=== PATIENT | female | born 2000 | race Caucasian/White ===

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

== ENCOUNTER 2022-04-05 22:02 | Emergency (ER) | payer BC, OTHER ==
[2022-04-05 23:02] VITALS: TEMP 98.1
--- NOTE | 2022-04-06 00:08 | ED ---
Female Urogenital HPI - General Chief complaint: Vaginal Bleeding Stated complaint: Vaginal bleeding-5 1/2 weeks preg. Time Seen by Provider: 04/06/22 00:05 Source: patient, RN notes reviewed, old records reviewed Mode of arrival: ambulatory Limitations: no limitations - History of Present Illness Initial comments: This is a 21-year-old female to the ER for evaluation. Patient presents today for evaluation regarding vaginal bleeding of . Patient has history of 3 pregnancies 1 prior miscarriage this is her third one prior delivery and now vaginal bleeding in this no cramping no other complaints. Patient has had ultrasound which was uneventful and had no findings prior. Patient does have an OB. No medical history takes no medications does not feel lightheaded dizzy or weak MD Complaint: vaginal bleeding, other (Positive for ) -: days(s) Location: suprapubic Radiation: suprapubic Severity: moderate Severity scale (1-10): 4 Quality: cramping Consistency: intermittent Worsens with: none Patient : Yes Associated Symptoms: vaginal bleeding - Related Data Sexually active: Yes Home Medications Medication Instructions Recorded Confirmed busPIRone HCL 15 mg PO BID 08/01/20 12/02/21 Aspirin 81 mg PO DAILY 11/16/21 12/02/21 DULoxetine HCL [Cymbalta] 60 mg PO DAILY 11/16/21 12/02/21 Iron 18 mg PO DAILY 11/16/21 12/02/21 Pnv No.95/Ferrous Fum/Folic AC 1 each PO DAILY 11/16/21 12/02/21 [ Multivitamin Tablet] Sennosides [Senna] 8.6 mg PO DAILY 11/16/21 12/02/21 cloNIDine HCL 0.1 mg PO DAILY PRN 12/02/21 12/02/21 Allergies Allergy/AdvReac Type Severity Reaction Status Date / Time No Known Allergies Allergy Verified 04/05/22 23:02 Review of Systems ROS Statement: Those systems with pertinent positive or pertinent negative responses have been documented in the HPI. ROS Other: All systems not noted in ROS Statement are negative. Past Medical History Additional Past Medical History / Comment(s): scoliosis. TROUBLE SWALLOWING BREAD AND VEGETABLES, POSS REFLUX History of Any Multi-Drug Resistant Organisms: None Reported Past Surgical History: Tonsillectomy Additional Past Surgical History / Comment(s): tooth pulled under anesthesia Past Anesthesia/Blood Transfusion Reactions: No Reported Reaction Past Psychological History: ADD/ADHD, Anxiety, Depression, PTSD Smoking Status: Never smoker Past Alcohol Use History: Occasional Past Drug Use History: None Reported - Past Family History Mother Family Medical History: No Reported History General Exam Limitations: no limitations General appearance: alert, in no apparent distress Head exam: Present: atraumatic, normocephalic, normal inspection Eye exam: Present: normal appearance, PERRL, EOMI. Absent: scleral icterus, conjunctival injection, periorbital swelling ENT exam: Present: normal exam, mucous membranes moist Neck exam: Present: normal inspection. Absent: tenderness, meningismus, lymphadenopathy Respiratory exam: Present: normal lung sounds bilaterally. Absent: respiratory distress, wheezes, rales, rhonchi, stridor Cardiovascular Exam: Present: regular rate, normal rhythm, normal heart sounds. Absent: systolic murmur, diastolic murmur, rubs, gallop, clicks GI/Abdominal exam: Present: soft, normal bowel sounds. Absent: distended, tende rness, guarding, rebound, rigid Extremities exam: Present: normal inspection, full ROM, normal capillary refill. Absent: tenderness, pedal edema, joint swelling, calf tenderness Back exam: Present: normal inspection Neurological exam: Present: alert, oriented X3, CN II-XII intact Psychiatric exam: Present: normal affect, normal mood Skin exam: Present: warm, dry, intact, normal color. Absent: rash Course Vital Signs 04/05/22 23:00 Temperature 98.1 F Pulse Rate 85 Respiratory 16 Rate Blood Pressure 104/63 O2 Sat by Pulse 100 Oximetry - Reevaluation(s) Reevaluation #1: 04/06/22 01:47 Medical record is reviewed Reevaluation #2: 04/06/22 01:47 Patient informed of results and questions are answered Reevaluation #3: 04/06/22 01:48 Patient will follow-up with secondary beta hCG and see her OB next week Medical Decision Making - Medical Decision Making 21 female with vaginal bleeding of likely early complicated with bleeding threatened miscarriage. Patient will have repeat beta-hCG and trending - Lab Data Result diagrams: 04/06/22 00:30 Lab Results 04/06/22 04/06/22 04/06/22 Range/Units 00:30 00:30 00:30 WBC 6.4 (4.0-11.0) k/uL RBC 4.13 (3.80-5.40) m/uL Hgb 12.2 (11.4-16.0) gm/dL Hct 38.1 (34.0-46.0) % MCV 92.2 (80.0-100.0) fL MCH 29.4 (25.0-35.0) pg MCHC 31.9 (31.0-37.0) g/dL RDW 14.3 (11.5-15.5) % Plt Count 242 (150-450) k/uL MPV 8.2 Neutrophils % 52 % Lymphocytes % 38 % Monocytes % 4 % Eosinophils % 3 % Basophils % 1 % Neutrophils # 3.3 (1.3-7.7) k/uL Lymphocytes # 2.5 (1.0-4.8) k/uL Monocytes # 0.3 (0-1.0) k/uL Eosinophils # 0.2 (0-0.7) k/uL Basophils # 0.0 (0-0.2) k/uL PT (9.0-12.0) sec INR (<1.2) APTT (22.0-30.0) sec Urine Color Yellow Urine Appearance Cloudy H (Clear) Urine pH 6.0 (5.0-8.0) Ur Specific Thornton 1.015 (1.001-1.035) Urine Protein Negative (Negative) Urine Glucose (UA) Negative (Negative) Urine Ketones Negative (Negative) Urine Blood Negative (Negative) Urine Nitrite Negative (Negative) Urine Bilirubin Negative (Negative) Urine Urobilinogen <2.0 (<2.0) mg/dL Ur Leukocyte Esterase Negative (Negative) Urine RBC 1 (0-5) /hpf Urine WBC 1 (0-5) /hpf Ur Squamous Epith Cells 8 H (0-4) /hpf Urine Mucus Rare H (None) /hpf Urine HCG, Qual Detected (Not Detectd) 04/06/22 Range/Units 00:30 WBC (4.0-11.0) k/uL RBC (3.80-5.40) m/uL Hgb (11.4-16.0) gm/dL Hct (34.0-46.0) % MCV (80.0-100.0) fL MCH (25.0-35.0) pg MCHC (31.0-37.0) g/dL RDW (11.5-15.5) % Plt Count (150-450) k/uL MPV Neutrophils % % Lymphocytes % % Monocytes % % Eosinophils % % Basophils % % Neutrophils # (1.3-7.7) k/uL Lymphocytes # (1.0-4.8) k/uL Monocytes # (0-1.0) k/uL Eosinophils # (0-0.7) k/uL Basophils # (0-0.2) k/uL PT 10.6 (9.0-12.0) sec INR 1.0 (<1.2) APTT 27.2 (22.0-30.0) sec Urine Color Urine Appearance (Clear) Urine pH (5.0-8.0) Ur Specific Thornton (1.001-1.035) Urine Protein (Negative) Urine Glucose (UA) (Negative) Urine Ketones (Negative) Urine Blood (Negative) Urine Nitrite (Negative) Urine Bilirubin (Negative) Urine Urobilinogen (<2.0) mg/dL Ur Leukocyte Esterase (Negative) Urine RBC (0-5) /hpf Urine WBC (0-5) /hpf Ur Squamous Epith Cells (0-4) /hpf Urine Mucus (None) /hpf Urine HCG, Qual (Not Detectd) - Radiology Data Radiology results: report reviewed (Ultrasound does show likely gestational sac IUP), image reviewed Disposition Clinical Impression: Threatened , Vaginal bleeding, Disposition: HOME SELF-CARE Condition: Good Instructions (If sedation given, give patient instructions): Threatened Miscarriage (ED) Is patient prescribed a controlled substance at d/c from ED?: No Referrals: Wicho Olivas DO [Primary Care Provider] - 1-2 days
[2022-04-06] MEDS ORDERED: SODIUM CHLORIDE 0.9% 500 ML 500 ML IV ONE (00:10)
[2022-04-06 00:40] LABS: Basophils % (A) 1 %; Eosinophils # (A) 0.2 k/uL (0-0.7); Eosinophils % (A) 3 %; HCT 38.1 % (34.0-46.0); HGB 12.2 gm/dL (11.4-16.0); Lymphocytes # (A) 2.5 k/uL (1.0-4.8); Lymphocytes % (A) 38 %; MCH 29.4 pg (25.0-35.0); MCHC 31.9 g/dL (31.0-37.0); MCV 92.2 fL (80.0-100.0); Mean Platelet Volume 8.2; Monocytes # (A) 0.3 k/uL (0-1.0); Monocytes % (A) 4 %; Neutrophils # (A) 3.3 k/uL (1.3-7.7); Neutrophils % (A) 52 %; Platelet Count 242 k/uL (150-450); RBC 4.13 m/uL (3.80-5.40); RDW 14.3 % (11.5-15.5); WBC 6.4 k/uL (4.0-11.0)
[2022-04-06 00:44] LABS: Appearance,Urine Cloudy (Clear); Bilirubin,Urine Negative (Negative); Blood,Urine Negative (Negative); Color,Urine Yellow; Glucose,Urine (UA) Negative (Negative); Ketones,Urine Negative (Negative); Leukocyte Esterase,Urine Negative (Negative); Mucus,Urine Rare /hpf; Nitrite,Urine Negative (Negative); Protein,Urine Negative (Negative); RBC,Urine 1 /hpf (0-5); Specific Gravity,Urine 1.015 (1.001-1.035); Squamous Epithelial Cell,Urine 8 /hpf (0-4); Urobilinogen,Urine <2.0 mg/dL (<2.0); WBC,Urine 1 /hpf (0-5)
[2022-04-06 00:59] LABS: Partial Thromboplastin Time 27.2 sec (22.0-30.0); Prothrombin Time 10.6 sec (9.0-12.0)
--- NOTE | 2022-04-06 01:01 | US ---
EXAMINATION TYPE: Transabdominal DATE OF EXAM: 04/06/2022 12:44 AM COMPARISON: NONE CLINICAL HISTORY: pain. Vaginal bleeding for 3 days. Patient states she is 5w3d and has had a miscarr iage before. A1 EXAM PERFORMED: Transvaginal (TV) and Transabdominal (TA) EXAM MEASUREMENTS: GESTATIONAL AGE / DATING Physician Established: Not yet established Dates by LMP: (5 weeks/3 days) EDC: 02/26/22 Dates by First Scan: No previous this is first scan here Dates by Current Scan for: Based on gestational sac measurements: (5 weeks/1 days) EDC: 12/06/22 MATERNAL ANATOMY Uterus: 6.7 x 4.4 x 6.3 cm Right Ovary: 3.3 x 1.8 x 2.2 cm; corpus luteal cyst 1.5 x 1.2 x 1.1 cm Left Ovary: 1.9 x 1.1 x 1.5 cm Post CDS / Adnexa: small amount of fluid seen within the posterior cul de sac Presence of free fluid: See above. Presence of corpus luteal cyst: Yes, right ovary. Presence of subchorionic bleed: No GESTATION / SURVEY CRL: No pole visualized today. MSD: 1.05 cm (5 weeks/1 days) Yolk Sac (normal less than 6mm): 0.20 cm Date of LMP: 02/26/22 Beta HcG (if available): Not available at this time IMPRESSION: There is intrauterine gestational sac with small yolk sac. No pole seen. The size corresponds t o 5 weeks and 1 day. No adnexal mass. No free fluid. Follow-up exam recommended in 10-14 days to confirm a living fetus.
[2022-04-06 01:51] VITALS: BP 123/69; PULSE 78; RESP 18
== END 2022-04-06 01:53 | disposition home or self-care (01) ==
LOC: EC 22:02
DX: O20.0 Threatened abortion (principal); Z3A.01 Less than 8 weeks gestation of pregnancy
CPT/HCPCS: 36415; 76801; 76817; 81001; 81025; 84702; 85025; 85610; 85730; 86850; 86900; 86901

== ENCOUNTER 2022-10-22 16:14 | Emergency (ER) | payer BC, OTHER ==
[2022-10-22 16:18] VITALS: BP 113/74; PULSE 100; RESP 20; TEMP 98
--- NOTE | 2022-10-22 16:39 | ED ---
ENT HPI - General Chief complaint: Dental/Oral Stated complaint: Dental issues-34 weeks preg. Time Seen by Provider: 10/22/22 16:21 Source: patient, RN notes reviewed Mode of arrival: ambulatory Limitations: no limitations - History of Present Illness Initial comments: Patient is a 22-year-old female presenting to the emergency room with complaints of dental pain and swelling to the right lower wisdom tooth that is breaking through and also has a dental caries. She reports that the pain has been ongoing for several days with an increase over the last few days. Due to her current status she is unable to take many medications and consequently has been suffering with the pain and avoiding chewing in the region. She denies any other symptoms related to infection including chest pain, shortness of breath, abdominal pain, nausea, vomiting, lethargy, fevers or chills. She is currently 34 weeks with her second without any complications. In addition to her she has past medical history significant for possible gastric reflux and scoliosis. MD complaint: tooth pain - Related Data Home Medications Medication Instructions Recorded Confirmed busPIRone HCL 15 mg PO BID 08/01/20 12/02/21 Aspirin 81 mg PO DAILY 11/16/21 12/02/21 DULoxetine HCL [Cymbalta] 60 mg PO DAILY 11/16/21 12/02/21 Iron 18 mg PO DAILY 11/16/21 12/02/21 Pnv No.95/Ferrous Fum/Folic AC 1 each PO DAILY 11/16/21 12/02/21 [ Multivitamin Tablet] Sennosides [Senna] 8.6 mg PO DAILY 11/16/21 12/02/21 cloNIDine HCL 0.1 mg PO DAILY PRN 12/02/21 12/02/21 Previous Rx's Medication Instructions Recorded Penicillin V Potassium [Pen Vee K] 500 mg PO QID 7 Days #28 tablet 10/22/22 Allergies Allergy/AdvReac Type Severity Reaction Status Date / Time No Known Allergies Allergy Verified 04/05/22 23:02 Review of Systems ROS Statement: Those systems with pertinent positive or pertinent negative responses have been documented in the HPI. ROS Other: All systems not noted in ROS Statement are negative. Past Medical History Additional Past Medical History / Comment(s): scoliosis. TROUBLE SWALLOWING BREAD AND VEGETABLES, POSS REFLUX History of Any Multi-Drug Resistant Organisms: None Reported Past Surgical History: Tonsillectomy Additional Past Surgical History / Comment(s): tooth pulled under anesthesia Past Anesthesia/Blood Transfusion Reactions: No Reported Reaction Past Psychological History: ADD/ADHD, Anxiety, Depression, PTSD Smoking Status: Never smoker Past Alcohol Use History: Occasional Past Drug Use History: None Reported - Past Family History Mother Family Medical History: No Reported History General Exam Limitations: no limitations General appearance: alert, in no apparent distress Head exam: Present: atraumatic, normocephalic, normal inspection Eye exam: Present: normal appearance, PERRL, EOMI. Absent: scleral icterus, conjunctival injection, periorbital swelling Expanded Mouth exam: Present: normal external inspection. Absent: drooling Teeth exam: Present: dental caries (Right lower wisdom tooth# 32 ), gingival enlargement (Right lower posterior), other (No evidence of abscess) Throat exam: normal inspection Neck exam: Present: normal inspection, full ROM. Absent: lymphadenopathy Respiratory exam: Present: normal lung sounds bilaterally. Absent: respiratory distress, wheezes, rales, rhonchi, stridor Cardiovascular Exam: Present: regular rate, normal rhythm, normal heart sounds. Absent: systolic murmur, diastolic murmur, rubs, gallop, clicks GI/Abdominal exam: Present: other (34 weeks gestational ) Extremities exam: Present: normal inspection. Absent: pedal edema, joint swelling Back exam: Present: normal inspection Neurological exam: Present: alert, oriented X3, CN II-XII intact Psychiatric exam: Present: normal affect, normal mood Skin exam: Present: warm, dry, intact, normal color. Absent: rash Course Vital Signs 10/22/22 16:15 Temperature 98 F Pulse Rate 100 Respiratory 20 Rate Blood Pressure 113/74 O2 Sat by Pulse 96 Oximetry Medical Decision Making - Medical Decision Making 22-year-old female presenting to the emergency room with dental pain and swelling to her right wisdom tooth along with a dental caries. No evidence of abscess on exam requiring laceration/drainage. Gingival enlargement with erythema and tenderness noted. No indication for laboratory studies or diagnostic imaging. Will discharge patient home on penicillin in stable condition. Due to concurrent advised avoidance of ibuprofen. Encouraged use of Tylenol as needed for pain along with warm compresses and warm salt water rinses to help reduce inflammation and pain. Case discussed with Dr. Verdin. Disposition Clinical Impression: Dental caries, Acute pulpitis Disposition: HOME SELF-CARE Condition: Stable Instructions (If sedation given, give patient instructions): Toothache (ED) Additional Instructions: Please complete course of antibiotic as prescribed. Please follow-up with your dentist and primary care provider. Please utilize Tylenol as needed for pain. Warm salt water rinses along with warm packs externally are encouraged to help reduce inflammation. Due to concurrent avoid use of NSAIDs including ibuprofen. Please return to the Emergency Department if symptoms worsen or any other concerns. Prescriptions: Penicillin V Potassium [Pen Vee K] 500 mg PO QID 7 Days #28 tablet Is patient prescribed a controlled substance at d/c from ED?: No Referrals: Wicho Olivas DO [Primary Care Provider] - 1-2 days Time of Disposition: 16:39
== END 2022-10-22 16:57 | disposition home or self-care (01) ==
LOC: EC 16:14
DX: O99.613 Diseases of the digestive system complicating pregnancy, third trimester (principal); O99.343 Other mental disorders complicating pregnancy, third trimester; K02.9 Dental caries, unspecified; K04.01 Reversible pulpitis; F41.9 Anxiety disorder, unspecified; F31.9 Bipolar disorder, unspecified; Z79.82 Long term (current) use of aspirin; Z79.899 Other long term (current) drug therapy; Z3A.34 34 weeks gestation of pregnancy
CPT/HCPCS: 99282

== ENCOUNTER 2022-11-26 18:07 | Inpatient (IN) | payer BC, OTHER ==
[2022-11-26] MEDS: OXYTOCIN 30 UNITS/500 ML NS 30 UNIT in SALINE 1 500ML.BAG IV SCH ×2 (18:45→21:00)
--- NOTE | 2022-11-26 19:07 | P.HPOB ---
History of Present Illness H&P Date: 11/26/22 Chief Complaint: Strong regular contractions, "I need to push" This is a 22-year-old female 2 para 1001 EDC 12/03/2022 at 38-6/7 weeks' gestation, who presented with a urge to push and strong regular uterine contractions. She denied fluid leakage or vaginal bleeding. Past medical history is significant for anxiety and depression. Past surgical history is negative. history is significant for negative group B strep cultures, blood type A+, rubella status immune. Urine culture, hepatitis B surface antigen, HIV testing, gonorrhea and chlamydia cultures all negative. One-hour Glucola 135. Social history patient is single, father of the baby is present and involved. She denies tobacco alcohol or drug use. Current medications clonidine 0.1 mg daily, Cymbalta 30 mg daily, BuSpar 15 mg daily, vitamin daily. On exam patient is 5 foot 3 inches, 180 pounds, vital signs are stable and she is afebrile. The general physical exam is within normal limits. On admission she is 8-9 cm dilated, bulging bag, -2 station, vertex presentation, 100% effaced. heart tones reassuring. Impression: 38-6/7 weeks intrauterine , active labor, delivery imminent. Plan: Patient will be admitted. Anticipating normal spontaneous vaginal delivery. Review of Systems Constitutional: Reports as per HPI Past Medical History Additional Past Medical History / Comment(s): scoliosis. TROUBLE SWALLOWING BREAD AND VEGETABLES, POSS REFLUX History of Any Multi-Drug Resistant Organisms: None Reported Past Surgical History: Tonsillectomy Additional Past Surgical History / Comment(s): tooth pulled under anesthesia Past Anesthesia/Blood Transfusion Reactions: No Reported Reaction Past Psychological History: ADD/ADHD, Anxiety, Depression, PTSD Smoking Status: Never smoker Past Alcohol Use History: Occasional Past Drug Use History: None Reported - Past Family History Mother Family Medical History: No Reported History Medications and Allergies Home Medications Medication Instructions Recorded Confirmed Type busPIRone HCL 15 mg PO BID 08/01/20 12/02/21 History Aspirin 81 mg PO DAILY 11/16/21 12/02/21 History DULoxetine HCL [Cymbalta] 60 mg PO DAILY 11/16/21 12/02/21 History Iron 18 mg PO DAILY 11/16/21 12/02/21 History Pnv No.95/Ferrous Fum/Folic AC 1 each PO DAILY 11/16/21 12/02/21 History [ Multivitamin Tablet] Sennosides [Senna] 8.6 mg PO DAILY 11/16/21 12/02/21 History cloNIDine HCL 0.1 mg PO DAILY PRN 12/02/21 12/02/21 History Penicillin V Potassium [Pen Vee K] 500 mg PO QID 7 Days #28 tablet 10/22/22 Rx Allergies Allergy/AdvReac Type Severity Reaction Status Date / Time No Known Allergies Allergy Verified 04/05/22 23:02 Exam See dictation under HPI please Assessment and Plan Assessment: 38-6/7 weeks intrauterine , active labor, delivery imminent Plan: Admit patient. Anticipate normal spontaneous vaginal delivery. Time with Patient: Less than 30
[2022-11-26] MEDS ORDERED: diphenhydrAMINE 50 MG/ML 1 ML VIAL IVP PRN ×2 (19:10)
[2022-11-26] MEDS ORDERED: BENZOCAINE/MENTHOL SPRAY 1 GM/SPRAY AEROSOL TOPICAL PRN (19:10)
[2022-11-26] MEDS ORDERED: SIMETHICONE 80 MG CHEWABLE PO PRN (19:10)
[2022-11-26] MEDS ORDERED: LANOLIN CREAM 5 GM TUBE TOPICAL PRN (19:10)
[2022-11-26] MEDS ORDERED: ZOLPIDEM 5 MG TAB PO PRN (19:10)
[2022-11-26] MEDS ORDERED: diphenhydrAMINE ELIXIR 25 MG/10 ML CUP PO PRN (19:10)
[2022-11-26] MEDS ORDERED: ACETAMINOPHEN TAB 325 MG TAB PO PRN (19:10)
[2022-11-26] MEDS ORDERED: diphenhydrAMINE 50 MG CAP PO PRN (19:10)
[2022-11-26] MEDS ORDERED: diphenhydrAMINE 25 MG CAP PO PRN (19:10)
[2022-11-26] MEDS ORDERED: HYDROCORTISONE 2.5% RECTAL CREAM 30 GM TUBE RECTAL PRN (19:10)
--- NOTE | 2022-11-26 19:10 | P.PROBDLV ---
Vaginal Delivery Note - . Vaginal Delivery Note: This is a 22-year-old female 2 para 1001 EDC 12/03/2022 at 38-6/7 weeks' gestation who presented with strong regular uterine contractions and an urge to push. Fetus has looked healthy on brief monitoring. Patient was admitted. Upon entering the room on my exam patient was completely dilated, vertex presentation. Artificial amniorrhexis revealed meconium-stained fluid. Patient was judged to be completely dilated at 1835 hrs. Perineal body was prepped and draped in usual sterile fashion. With excellent maternal expulsive efforts the infant's head delivered occiput anterior 1841 hrs. There was no nuchal cord noted. The left or anterior shoulder was gently delivered from underneath the pubic symphysis at which time the oropharynx, nasopharynx, and external nares were all bulb suctioned. Patient was officially delivered of a liveborn male infant at 1841 hrs. Umbilical cord was doubly clamped and ligated, he was handed to waiting nurses for evaluation where scores of 8 and 9 at one and 5 minutes respectively were given. The placenta delivered spontaneously, it was inspected and noted to be very darkly meconium stained, therefore sent to pathology for further evaluation. Time of placental delivery 1844 hrs. At this time the uterus is massaged. Careful inspection of the cervix, vagina, perineum, periurethral, and perirectal areas revealed no lacerations or defects. Infant weighs 8 lbs. 3 oz. or 3715 g. Patient is declining circumcision for her son. Total estimated blood loss 300 mL's. All sponge needle and enhancement counts are correct. Patient and her family are allowed to begin the bonding experience in the LDR.
[2022-11-26] MEDS ORDERED: cloNIDine HCL 0.1 MG TAB PO STA (19:11)
[2022-11-26] MEDS ORDERED: METHYLERGONOVINE 0.2 MG/ML 1 ML AMP IM ONE (19:17)
[2022-11-26] MEDS ORDERED: TERBUTALINE 1 MG/ML VIAL SQ PRN (19:32)
[2022-11-26] MEDS: IBUPROFEN 600 MG TAB PO SCH (19:41)
[2022-11-26] MEDS ORDERED: LACTATED RINGERS 1,000 ML IV SCH (19:45)
[2022-11-26 19:51] LABS: Basophils % (A) 0 %; Eosinophils # (A) 0.1 k/uL (0-0.7); Eosinophils % (A) 1 %; HCT 36.3 % (34.0-46.0); HGB 12.1 gm/dL (11.4-16.0); Hypochromasia Slight; Lymphocytes # (A) 2.2 k/uL (1.0-4.8); Lymphocytes % (A) 23 %; MCH 30.2 pg (25.0-35.0); MCHC 33.4 g/dL (31.0-37.0); MCV 90.4 fL (80.0-100.0); Mean Platelet Volume 13.5; Monocytes # (A) 0.3 k/uL (0-1.0); Monocytes % (A) 3 %; Neutrophils # (A) 6.7 k/uL (1.3-7.7); Neutrophils % (A) 71 %; Platelet Count 163 k/uL (150-450); RBC 4.02 m/uL (3.80-5.40); RDW 13.7 % (11.5-15.5); WBC 9.5 k/uL (4.0-11.0)
[2022-11-26] MEDS ORDERED: busPIRone HCl 5 MG TAB PO SCH (21:00)
[2022-11-26] MEDS: DULoxetine HCL 30 MG CAPSULE.DR PO SCH (21:25)
[2022-11-26] MEDS: SENNOSIDES-DOCUSATE SODIUM 1 EACH TAB PO SCH (22:10)
[2022-11-27] MEDS: IBUPROFEN 600 MG TAB PO SCH ×4 (02:18→14:25)
[2022-11-27] MEDS: SENNOSIDES-DOCUSATE SODIUM 1 EACH TAB PO SCH (08:00)
[2022-11-27] MEDS: DULoxetine HCL 30 MG CAPSULE.DR PO SCH (08:26)
--- NOTE | 2022-11-27 12:49 | P.DS ---
Providers Date of admission: 11/26/22 18:28 Expected date of discharge: 11/27/22 Attending physician: Floyd Sauer Primary care physician: Stated None Hospital Course: This is a 22-year-old white female 2 para 1001 EDC 12/03/2022 at 38-6/7 weeks' gestation who presented in active labor from home is remarkable for blood type A positive, rubella status immune, group B strep cultures negative. Please see dictated history and physical for details. Artificial amniorrhexis revealed meconium-stained fluid. Patient went on to swiftly deliver a liveborn male infant with scores of 8 and 9 at one and 5 minutes respectively. Infant weight 8 lbs. 3 oz. or 3715 g. There were no lacerations encountered. Estimated blood loss 300 mL's. Please see dictated delivery note for details. This morning the patient is doing quite well. She is voiding, ambulating, passing flatus without difficulty. Vital signs are stable and she is afebrile. Fundus is firm and in the midline, symmetric and 18 week size. Extremities are negative for edema. Patient is doing quite well and is requesting discharge home. infant is also doing well. She is declining circumcision for her son. Patient being discharged home in very good condition. She will follow-up with her primary finisher accordion in 6 weeks. I have reminded her no intercourse, tampons or douching. She will use [id number] Motrin, Advil or Aleve as needed for pain. I've asked her to call with any fevers shakes or chills, foul smelling or copious lochia, with the passage of large blood clots, with any pain not alleviated by [id number] products, or indeed with any concerns. Receptive options have been discussed and she will consider this further at the 6 week visit with her primary OB. Assessment: Doing well first day Patient Condition at Discharge: Good Plan - Discharge Summary Discharge Rx Participant: No New Discharge Prescriptions: No Action busPIRone HCL 15 mg PO BID Aspirin 81 mg PO DAILY Pnv No.95/Ferrous Fum/Folic AC [ Multivitamin Tablet] 1 each PO DAILY DULoxetine HCL [Cymbalta] 60 mg PO DAILY Sennosides [Senna] 8.6 mg PO DAILY Iron 18 mg PO DAILY cloNIDine HCL 0.1 mg PO DAILY PRN PRN Reason: Insomnia Penicillin V Potassium [Pen Vee K] 500 mg PO QID 7 Days #28 tablet Discharge Medication List busPIRone HCL 15 mg PO BID 08/01/20 [History] Aspirin 81 mg PO DAILY 11/16/21 [History] DULoxetine HCL [Cymbalta] 60 mg PO DAILY 11/16/21 [History] Iron 18 mg PO DAILY 11/16/21 [History] Pnv No.95/Ferrous Fum/Folic AC [ Multivitamin Tablet] 1 each PO DAILY 11/16/21 [History] Sennosides [Senna] 8.6 mg PO DAILY 11/16/21 [History] cloNIDine HCL 0.1 mg PO DAILY PRN 12/02/21 [History] Penicillin V Potassium [Pen Vee K] 500 mg PO QID 7 Days #28 tablet 10/22/22 [Rx] Follow up Appointment(s)/Referral(s): Floyd Sauer MD [STAFF PHYSICIAN] - 6 Weeks Discharge Disposition: HOME SELF-CARE
[2022-11-27 19:08] VITALS: BP 120/74; PULSE 75; RESP 17; TEMP 97.9
== END 2022-11-27 19:20 | disposition home or self-care (01) | DRG 807 ==
LOC: FBPOP 18:07 → 4FBP 18:28
PROVIDERS: ADMIT Obstetrics & Gynecology; ATTEND Obstetrics & Gynecology
PROC: 10E0XZZ Delivery of Products of Conception, External Approach (ICD-10-PCS; principal; 2022-11-26)
PROC: 10907ZC Drainage of Amniotic Fluid, Therapeutic from Products of Conception, Via Natural or Artificial Opening (ICD-10-PCS; 2022-11-26)
PROC: 4A0HXCZ Measurement of Products of Conception, Cardiac Rate, External Approach (ICD-10-PCS; 2022-11-26)
DX: O77.0 Labor and delivery complicated by meconium in amniotic fluid (principal); Z37.0 Single live birth; O99.344 Other mental disorders complicating childbirth; F32.A Depression, unspecified; F43.10 Post-traumatic stress disorder, unspecified; F90.9 Attention-deficit hyperactivity disorder, unspecified type; Z3A.38 38 weeks gestation of pregnancy; Z79.82 Long term (current) use of aspirin; Z79.899 Other long term (current) drug therapy
CPT/HCPCS: 85025; 86850; 86900; 86901; 88307

== ENCOUNTER → 2023-07-20 | Outpatient (CLI) | payer BC, OTHER ==
--- NOTE | 2023-07-20 14:27 | US ---
EXAMINATION TYPE: US extremity nonvasc mass LT DATE OF EXAM: 07/20/2023 COMPARISON: NONE CLINICAL INDICATION: Female, 22 years old with history of T14.8XXA OTHER INJURY OF UNSPECIFIED BODY R EGION; TECHNIQUE: Sanchez scale imaging performed over palpable area, left lateral upper thigh. FINDINGS: There is an anechoic fluid collection measuring 9.5 x 1.1 x 6.1 cm, probable hematoma loca neo directly under palpable. IMPRESSION: Anechoic fluid collection in the posterior left upper thigh could represent seroma versus hematoma.
== END | disposition home or self-care (01) ==
LOC: RADUSWWP 14:08
PROVIDERS: ATTEND Family Medicine
DX: T14.8XXA Other injury of unspecified body region, initial encounter (principal); Y99.9 Unspecified external cause status

== ENCOUNTER 2023-09-21 17:50 | Emergency (ER) | payer BC, OTHER ==
[2023-09-21 18:17] VITALS: PULSE 105; RESP 18; TEMP 97.3
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
[2023-09-21 21:09] LABS: Appearance,Urine Slightly Cloudy (Clear); Bilirubin,Urine 1+ (Negative); Color,Urine Dark Yellow; Glucose,Urine (UA) Negative (Negative); Ketones,Urine Trace (Negative); Protein,Urine 1+ (Negative); Specific Gravity,Urine >1.030 (1.001-1.035)
[2023-09-21 21:10] LABS: Blood,Urine Negative (Negative); Leukocyte Esterase,Urine Small (Negative); Nitrite,Urine Negative (Negative)
[2023-09-21 21:19] LABS: Basophils % (A) 0 %; Eosinophils # (A) 0.2 k/uL (0-0.7); Eosinophils % (A) 2 %; HCT 39.3 % (34.0-46.0); HGB 12.9 gm/dL (11.4-16.0); Lymphocytes # (A) 2.6 k/uL (1.0-4.8); Lymphocytes % (A) 23 %; MCHC 32.7 g/dL (31.0-37.0); MCV 88.6 fL (80.0-100.0); Mean Platelet Volume 9.1; Monocytes # (A) 0.5 k/uL (0-1.0); Monocytes % (A) 5 %; Neutrophils # (A) 7.8 k/uL (1.3-7.7); Neutrophils % (A) 69 %; Platelet Count 194 k/uL (150-450); RBC 4.43 m/uL (3.80-5.40); RDW 13.4 % (11.5-15.5); WBC 11.3 k/uL (3.8-10.6)
[2023-09-21 21:20] LABS: Bacteria,Urine Rare /hpf; Mucus,Urine Many /hpf; RBC,Urine 3 /hpf (0-5); Squamous Epithelial Cell,Urine 8 /hpf (0-4); WBC,Urine 3 /hpf (0-5)
[2023-09-21 22:15] LABS: ALT 14 U/L (4-34); African American GFR (CKD) >90 (>60 ml/min/1.73 sqM); Anion Gap 12 mmol/L; Blood Urea Nitrogen 16 mg/dL (7-17); Calcium 9.1 mg/dL (8.4-10.2); Carbon Dioxide 21 mmol/L (22-30); Chloride 104 mmol/L (98-107); Glucose 85 mg/dL (74-99); Non-African American GFR(CKD) >90 (>60 ml/min/1.73 sqM); Sodium 137 mmol/L (137-145)
--- NOTE | 2023-09-21 22:16 | US ---
EXAMINATION TYPE: US extremity nonvasc mass LT DATE OF EXAM: 09/21/2023 COMPARISON: us July 20, 2023 CLINICAL INDICATION: Female, 23 years old with history of pain swelling left lateral thigh; Pt states pain and swelling returned today from prior injury to left leg in June TECHNIQUE: Left lateral thigh FINDINGS: Fluid collection left lateral thigh as visualized on prior exam in June- fluid appears more complex when compared to prior Persistent fluid collection in the left lateral thigh is similar in size with more ill-defined margin s IMPRESSION: Fairly moderate sized fluid collection in the deep subcutaneous tissue left lateral thig h likely reflects recurrent or residual hematoma.
[2023-09-21 22:17] LABS: AST 33 U/L (14-36); Albumin 4.5 g/dL (3.5-5.0); Alkaline Phosphatase 58 U/L (38-126); Potassium 4.6 mmol/L (3.5-5.1); Total Bilirubin 0.8 mg/dL (0.2-1.3); Total Protein 7.6 g/dL (6.3-8.2)
[2023-09-21] MEDS ORDERED: LIDOCAINE 1% INJ 10MG/ML (20 ML MDV) SQ ONE (22:38)
[2023-09-21] MEDS ORDERED: ALPRAZolam 1 MG TAB PO STA (22:54)
[2023-09-22] VITALS: BP 108/68
== END 2023-09-22 00:01 | disposition home or self-care (01) ==
LOC: EC 17:50
DX: S70.12XA Contusion of left thigh, initial encounter (principal); F32.A Depression, unspecified; F41.9 Anxiety disorder, unspecified; F90.9 Attention-deficit hyperactivity disorder, unspecified type; Z79.82 Long term (current) use of aspirin; Z79.899 Other long term (current) drug therapy; W22.8XXA Striking against or struck by other objects, initial encounter
CPT/HCPCS: 99284; 36415; 80053; 85025; 81001; 87070; 87205; 76882; J2001

== ENCOUNTER 2024-01-19 21:59 | Emergency (ER) | payer BC ==
[2024-01-19] MEDS: LIDOCAINE 1% INJ 10MG/ML (20 ML MDV) SQ ONE (22:34)
[2024-01-19] MEDS: DIPH,PERTUS(ACELL)TETVAC-LF 0.5 ML VIAL IM ONE (22:34)
[2024-01-19 22:36] VITALS: BP 125/74; PULSE 108; RESP 20; TEMP 98.6
--- NOTE | 2024-01-19 22:51 | ED ---
Wound/Laceration HPI - General Chief Complaint: Wound/Laceration Stated Complaint: laceration right arm Time Seen by Provider: 01/19/24 22:07 Source: patient Mode of arrival: ambulatory Limitations: no limitations - History of Present Illness Initial Comments: 23-year-old female presenting with chief complaint of laceration. Patient states that she tripped and caught her right forearm on her counter. She is unsure of her last tetanus. Bleeding is well-controlled at this time. Laceration approximately 3 and half centimeters. No other complaints - Related Data Home Medications Medication Instructions Recorded Confirmed busPIRone HCL 15 mg PO BID 08/01/20 12/02/21 Aspirin 81 mg PO DAILY 11/16/21 12/02/21 DULoxetine HCL [Cymbalta] 60 mg PO DAILY 11/16/21 12/02/21 Iron 18 mg PO DAILY 11/16/21 12/02/21 Pnv No.95/Ferrous Fum/Folic AC 1 each PO DAILY 11/16/21 12/02/21 [ Multivitamin Tablet] Sennosides [Senna] 8.6 mg PO DAILY 11/16/21 12/02/21 cloNIDine HCL 0.1 mg PO DAILY PRN 12/02/21 12/02/21 Previous Rx's Medication Instructions Recorded Penicillin V Potassium [Pen Vee K] 500 mg PO QID 7 Days #28 tablet 10/22/22 Allergies Allergy/AdvReac Type Severity Reaction Status Date / Time No Known Allergies Allergy Verified 01/19/24 22:06 Review of Systems ROS Statement: Those systems with pertinent positive or pertinent negative responses have been documented in the HPI. ROS Other: All systems not noted in ROS Statement are negative. Past Medical History Additional Past Medical History / Comment(s): scoliosis. TROUBLE SWALLOWING BREAD AND VEGETABLES, POSS REFLUX History of Any Multi-Drug Resistant Organisms: None Reported Past Surgical History: Tonsillectomy Additional Past Surgical History / Comment(s): tooth pulled under anesthesia Past Anesthesia/Blood Transfusion Reactions: No Reported Reaction Past Psychological History: ADD/ADHD, Anxiety, Depression, PTSD Smoking Status: Never smoker Past Alcohol Use History: Occasional Past Drug Use History: None Reported - Past Family History Mother Family Medical History: No Reported History General Exam Limitations: no limitations General appearance: alert, in no apparent distress Head exam: Present: atraumatic, normocephalic Eye exam: Present: normal appearance Neck exam: Present: normal inspection Respiratory exam: Absent: respiratory distress Extremities exam: Present: full ROM Neurological exam: Present: alert, oriented X3 Psychiatric exam: Present: normal affect, normal mood Expanded Type of lesion: Present: laceration (3.5cm right forearm) Course Vital Signs 01/19/24 22:02 Temperature 98.6 F Pulse Rate 108 H Respiratory 20 Rate Blood Pressure 125/74 O2 Sat by Pulse 99 Oximetry Procedures - Laceration Laceration #1 Consent Obtained: verbal consent Indication: laceration Site: upper extremity (R forearm) Size (cm): 4 Description: linear Depth: simple, single layer Anesthetic Used: lidocaine 1%, without epi Anesthesia Technique: local infiltration Pre-repair: wound explored Size of Sutures: 4-0 Number of Sutures: 3 Technique: simple, interrupted Patient Tolerated Procedure: well Medical Decision Making - Medical Decision Making Was pt. sent in by a medical professional or institution (, PA, CONTRACT ENGINEER, urgent care, hospital, or snf...) When possible be specific @ -No Did you speak to anyone other than the patient for history (EMS, parent, family, police, friend...)? What history was obtained from this source @ -No Did you review nursing and triage notes (agree or disagree)? Why? @ -I reviewed and agree with nursing and triage notes Were old charts reviewed (outside hosp., previous admission, EMS record, old EKG, old radiological studies, urgent care reports/EKG's, snf records)? Report findings @ -No old charts were reviewed Differential Diagnosis (chest pain, altered mental status, abdominal pain women, abdominal pain men, vaginal bleeding, weakness, fever, dyspnea, syncope, headache, dizziness, GI bleed, back pain, seizure, CVA, palpatations, mental health, musculoskeletal)? @ -Not applicable EKG interpreted by me (3pts min.). @ -As above X-rays interpreted by me (1pt min.). @ -None done CT interpreted by me (1pt min.). @ -None done U/S interpreted by me (1pt. min.). @ -None done What testing was considered but not performed or refused? (CT, X-rays, U/S, labs)? Why? @ -None What meds were considered but not given or refused? Why? @ -None Did you discuss the management of the patient with other professionals (professionals i.e. DrMirna, PA, CONTRACT ENGINEER, lab, RT, psych nurse, social media campaign manager, gluing pressman, teacher, commanding officer homicide squad, pillowcase cleaner)? Give summary @ -No Was smoking cessation discussed for >3mins.? @ -No Was critical care preformed (if so, how long)? @ -No Were there social determinants of health that impacted care today? How? (Homelessness, low income, unemployed, alcoholism, drug addiction, transportation, low edu. Level, literacy, decrease access to med. care, halfway, rehab)? @ -No Was there de-escalation of care discussed even if they declined (Discuss DNR or withdrawal of care, Hospice)? DNR status @ -No What co-morbidities impacted this encounter? (DM, HTN, Smoking, COPD, CAD, Cancer, CVA, ARF, Chemo, Hep., AIDS, mental health diagnosis, sleep apnea, morbid obesity)? @ -None Was patient admitted / discharged? Hospital course, mention meds given and route, prescriptions, significant lab abnormalities, going to OR and other pertinent info. @ -23-year-old female presenting with chief complaint of forearm laceration. Laceration is repaired, see procedure note for details. Educated on wound care and signs of infection. Discharged home. Follow-up with PCP. Report back to ER with any new or worsening symptoms. Discussed return parameters and answered all questions. Patient conveyed verbal understanding and agreed to the plan. I discussed this case in detail with my attending Dr. Salas Undiagnosed new problem with uncertain prognosis? @ -No Drug Therapy requiring intensive monitoring for toxicity (Heparin, Nitro, Insulin, Cardizem)? @ -No Were any procedures done? @ -Laceration repair Diagnosis/symptom? @ -Laceration Acute, or Chronic, or Acute on Chronic? @ -Acute Uncomplicated (without systemic symptoms) or Complicated (systemic symptoms)? @ -Uncomplicated Side effects of treatment? @ -No Exacerbation, Progression, or Severe Exacerbation? @ -No Poses a threat to life or bodily function? How? (Chest pain, [place], [place], pneumonia, PE, COPD, DKA, ARF, appy, cholecystitis, CVA, Diverticulitis, Homicidal, Suicidal, threat to staff... and all critical care pts) @ -No Disposition Clinical Impression: Laceration Disposition: HOME SELF-CARE Condition: Good Instructions (If sedation given, give patient instructions): Care For Your Stitches (ED), Laceration (ED) Additional Instructions: Follow up with PCP. Report back to ER with any new or worsening symptoms. Keep the wound clean dry and covered. Wash daily with soap and water. Monitor for any signs of infection, including but not limited to redness, swelling, warmth, tenderness, discharge. Sutures may be removed in 7 to 10 days. Is patient prescribed a controlled substance at d/c from ED?: No Referrals: Wicho Olivas DO [Primary Care Provider] - 1-2 days Time of Disposition: 22:51
== END 2024-01-19 23:00 | disposition home or self-care (01) ==
LOC: EC 21:59
DX: S51.811A Laceration without foreign body of right forearm, initial encounter (principal); F32.A Depression, unspecified; F41.9 Anxiety disorder, unspecified; Z79.899 Other long term (current) drug therapy; Z23 Encounter for immunization; W18.40XA Slipping, tripping and stumbling without falling, unspecified, initial encounter; W22.8XXA Striking against or struck by other objects, initial encounter
CPT/HCPCS: 90715; 12002; 99282; 90471; J2001

== ENCOUNTER 2024-01-26 01:43 | Emergency (ER) | payer BC ==
[2024-01-26 02:08] VITALS: TEMP 97.7
--- NOTE | 2024-01-26 03:05 | ED ---
General Adult HPI - General Chief complaint: Wound/Laceration Stated complaint: WOUND OPENED Time Seen by Provider: 01/26/24 02:18 Source: patient Mode of arrival: ambulatory Limitations: no limitations - History of Present Illness Initial comments: 23-year-old female presents to the ED with chief complaint of wound problem. Patient had laceration to her right anterior forearm which was repaired with stitches. Patient states that she removed the stitches herself and the wound has opened up prompting presentation to the ED for further evaluation. No other complaints at this time. - Related Data Home Medications Medication Instructions Recorded Confirmed busPIRone HCL 15 mg PO BID 08/01/20 12/02/21 Aspirin 81 mg PO DAILY 11/16/21 12/02/21 DULoxetine HCL [Cymbalta] 60 mg PO DAILY 11/16/21 12/02/21 Iron 18 mg PO DAILY 11/16/21 12/02/21 Pnv No.95/Ferrous Fum/Folic AC 1 each PO DAILY 11/16/21 12/02/21 [ Multivitamin Tablet] Sennosides [Senna] 8.6 mg PO DAILY 11/16/21 12/02/21 cloNIDine HCL 0.1 mg PO DAILY PRN 12/02/21 12/02/21 Previous Rx's Medication Instructions Recorded Penicillin V Potassium [Pen Vee K] 500 mg PO QID 7 Days #28 tablet 10/22/22 Allergies Allergy/AdvReac Type Severity Reaction Status Date / Time No Known Allergies Allergy Verified 01/26/24 01:52 Review of Systems ROS Statement: Those systems with pertinent positive or pertinent negative responses have been documented in the HPI. ROS Other: All systems not noted in ROS Statement are negative. Past Medical History Additional Past Medical History / Comment(s): scoliosis. TROUBLE SWALLOWING BREAD AND VEGETABLES, POSS REFLUX History of Any Multi-Drug Resistant Organisms: None Reported Past Surgical History: Tonsillectomy Additional Past Surgical History / Comment(s): tooth pulled under anesthesia, lip lift Past Anesthesia/Blood Transfusion Reactions: No Reported Reaction Past Psychological History: ADD/ADHD, Anxiety, Depression, PTSD Smoking Status: Never smoker Past Alcohol Use History: Occasional Past Drug Use History: None Reported - Past Family History Mother Family Medical History: No Reported History General Exam Limitations: no limitations General appearance: alert, in no apparent distress Eye exam: Present: normal appearance Neck exam: Present: normal inspection Respiratory exam: Present: normal lung sounds bilaterally Cardiovascular Exam: Present: regular rate, normal rhythm GI/Abdominal exam: Present: soft Extremities exam: Present: other (Patient has approximately 1-1/2 cm laceration to the right anterior forearm.) Neurological exam: Present: alert, oriented X3 Skin exam: Present: warm, dry Course Vital Signs 01/26/24 01:50 Temperature 97.7 F Pulse Rate 87 Respiratory 18 Rate Blood Pressure 106/60 O2 Sat by Pulse 99 Oximetry Medical Decision Making - Medical Decision Making Was pt. sent in by a medical professional or institution (, PA, FIRE MANAGER, urgent care, hospital, or half-way...) When possible be specific @ -No Did you speak to anyone other than the patient for history (EMS, parent, family, police, friend...)? What history was obtained from this source @ -No Did you review nursing and triage notes (agree or disagree)? Why? @ -I reviewed and agree with nursing and triage notes Were old charts reviewed (outside hosp., previous admission, EMS record, old EKG, old radiological studies, urgent care reports/EKG's, half-way records)? Report findings @ -No old charts were reviewed Differential Diagnosis (chest pain, altered mental status, abdominal pain women, abdominal pain men, vaginal bleeding, weakness, fever, dyspnea, syncope, headache, dizziness, GI bleed, back pain, seizure, CVA, palpatations, mental health, musculoskeletal)? @ -Differential Musculoskeletal Muscular strain, contusion, ligament sprain, fracture, arthritis, septic arthritis, bursitis, cellulitis, muscle spasm, nerve compression, DVT, arterial occlusion, herpes zoster, electrolyte abnormality, tumor.... This is not meant to be in all inclusive list EKG interpreted by me (3pts min.). @ -None X-rays interpreted by me (1pt min.). @ -None done CT interpreted by me (1pt min.). @ -None done U/S interpreted by me (1pt. min.). @ -None done What testing was considered but not performed or refused? (CT, X-rays, U/S, labs)? Why? @ -None What meds were considered but not given or refused? Why? @ -None Did you discuss the management of the patient with other professionals (professionals i.e. , PA, FIRE MANAGER, lab, RT, psych nurse, social science instructor, environmental lawyer, teacher, deck officer, bottle caser)? Give summary @ -No Was smoking cessation discussed for >3mins.? @ -No Was critical care preformed (if so, how long)? @ -No Were there social determinants of health that impacted care today? How? (Homelessness, low income, unemployed, alcoholism, drug addiction, transportation, low edu. Level, literacy, decrease access to med. care, fci, rehab)? @ -No Was there de-escalation of care discussed even if they declined (Discuss DNR or withdrawal of care, Hospice)? DNR status @ -No What co-morbidities impacted this encounter? (DM, HTN, Smoking, COPD, CAD, Cancer, CVA, ARF, Chemo, Hep., AIDS, mental health diagnosis, sleep apnea, morbid obesity)? @ -None Was patient admitted / discharged? Hospital course, mention meds given and route, prescriptions, significant lab abnormalities, going to OR and other pertinent info. @ -Discharge 23-year-old female presents to the ED with a chief complaint of laceration. Patient had a laceration to her right anterior forearm which was sutured here. Patient removed the stitches herself. Exam there is a small open laceration measuring approximately a centimeter and a half. Wound was covered with bacitracin and bandage. Discussed proper wound care. Discharged home in stable condition. Discussed strict return precautions patient and family verbalized agreement. Undiagnosed new problem with uncertain prognosis? @ -No Drug Therapy requiring intensive monitoring for toxicity (Heparin, Nitro, Insulin, Cardizem)? @ -No Were any procedures done? @ -No Diagnosis/symptom? @ -Laceration, right anterior forearm Acute, or Chronic, or Acute on Chronic? @ -Acute Uncomplicated (without systemic symptoms) or Complicated (systemic symptoms)? @ -Uncomplicated Side effects of treatment? @ -No Exacerbation, Progression, or Severe Exacerbation? @ -No Poses a threat to life or bodily function? How? (Chest pain, [place], [place], pneumonia, PE, COPD, DKA, ARF, appy, cholecystitis, CVA, Diverticulitis, Homicidal, Suicidal, threat to staff... and all critical care pts) @ -No Disposition Clinical Impression: Laceration Disposition: HOME SELF-CARE Condition: Good Instructions (If sedation given, give patient instructions): Wound Infection (ED), Acute Wound Care (ED) Additional Instructions: Please return to the Emergency Department if symptoms worsen or any other concerns. Please continue wound care as discussed. Monitor for signs of infection. Is patient prescribed a controlled substance at d/c from ED?: No Referrals: Wicho Olivas DO [Primary Care Provider] - 1-2 days Time of Disposition: 03:00
[2024-01-26] MEDS: BACITRACIN ZINC 500 UNIT/GM OINT 28.4 GM TUBE TOPICAL ONE (03:15)
[2024-01-26 03:49] VITALS: BP 114/76; PULSE 75; RESP 16
== END 2024-01-26 03:27 | disposition home or self-care (01) ==
LOC: EC 01:43
DX: S51.811A Laceration without foreign body of right forearm, initial encounter (principal); F41.9 Anxiety disorder, unspecified; F32.A Depression, unspecified; F90.9 Attention-deficit hyperactivity disorder, unspecified type; Z79.899 Other long term (current) drug therapy; Z88.0 Allergy status to penicillin; X58.XXXA Exposure to other specified factors, initial encounter
CPT/HCPCS: 12001; 99282

== ENCOUNTER → 2024-11-13 | Outpatient (CLI) | payer BC ==
--- NOTE | 2024-11-13 11:02 | US ---
EXAMINATION TYPE: US abdomen complete DATE OF EXAM: 11/13/2024 COMPARISON: NONE CLINICAL INDICATION: Female, 24 years old with history of R10.11 RUQ PAIN; TECHNIQUE: Grayscale and color Doppler imaging of the abdomen was performed. FINDINGS: EXAM MEASUREMENTS: Liver Length: 14.4 cm Gallbladder Wall: 0.4 cm CBD: 0.4 cm, color Doppler imaging was utilized to isolate the common bile duct for measurement. Spleen: 8.5 cm Right Kidney: 11.0x3.9x5.1 cm Left Kidney: 10.0x4.8x5.2 cm OFFICE SECRETARY NOTES: Pancreas: wnl Liver: No abnormalities seen Gallbladder: Multiple echogenic foci with posterior shadowing seen throughout Gb Evidence for sonographic Horne's sign: No CBD: wnl Spleen: wnl Right Kidney: No hydronephrosis or masses seen Left Kidney: No hydronephrosis or masses seen Upper IVC: wnl Abd Aorta: wnl . IMPRESSION: Cholelithiasis with borderline gallbladder wall thickening correlate for cholecystitis. A [place] level critical message alert has been initiated for Wicho Olivas DO via the [facility] Critical Results System on 11/13/2024 10:59 AM. This message alert has been sent to Wicho bustos DO via the preferences provided by the clinician for the receipt of Radiology Critical Finding s. Message ID [id number]. [facility], , 11/13/2024 11:00 AM
== END | disposition home or self-care (01) ==
LOC: RADUSWWP 09:14
PROVIDERS: ATTEND Family Medicine
DX: K80.20 Calculus of gallbladder without cholecystitis without obstruction (principal); K82.8 Other specified diseases of gallbladder
CPT/HCPCS: 76700

== ENCOUNTER 2024-11-14 01:52 | Emergency (ER) | payer BC ==
[2024-11-14 01:58] VITALS: RESP 18
[2024-11-14 02:58] LABS: Basophils % (A) 0 %; Eosinophils # (A) 0.1 k/uL (0-0.7); Eosinophils % (A) 2 %; HCT 39.4 % (34.0-46.0); HGB 13.1 gm/dL (11.4-16.0); Lymphocytes # (A) 2.9 k/uL (1.0-4.8); Lymphocytes % (A) 45 %; MCH 30.6 pg (25.0-35.0); MCHC 33.2 g/dL (31.0-37.0); Mean Platelet Volume 8.5; Monocytes # (A) 0.3 k/uL (0-1.0); Monocytes % (A) 4 %; Neutrophils % (A) 47 %; Platelet Count 248 k/uL (150-450); RBC 4.29 m/uL (3.80-5.40); RDW 12.9 % (11.5-15.5); WBC 6.4 k/uL (3.8-10.6)
[2024-11-14 03:02] LABS: Appearance,Urine Clear (Clear); Bilirubin,Urine Negative (Negative); Blood,Urine Negative (Negative); Color,Urine Light Yellow; Glucose,Urine (UA) Negative (Negative); Ketones,Urine Negative (Negative); Leukocyte Esterase,Urine Negative (Negative); Nitrite,Urine Negative (Negative); PH, Urine 5.5 (5.0-8.0); Protein,Urine Negative (Negative); Urobilinogen,Urine <2.0 mg/dL (<2.0)
[2024-11-14 03:04] LABS: ALT 17 U/L (4-34); AST 21 U/L (14-36); African American GFR (CKD) >90 (>60 ml/min/1.73 sqM); Albumin 4.7 g/dL (3.5-5.0); Alkaline Phosphatase 26 U/L (38-126); Anion Gap 4 mmol/L; Blood Urea Nitrogen 24 mg/dL (7-17); Calcium 9.8 mg/dL (8.4-10.2); Carbon Dioxide 25 mmol/L (22-30); Chloride 106 mmol/L (98-107); Glucose 89 mg/dL (74-99); Lipase 99 U/L (23-300); Non-African American GFR(CKD) >90 (>60 ml/min/1.73 sqM); Sodium 135 mmol/L (137-145); Total Bilirubin 0.6 mg/dL (0.2-1.3); Total Protein 7.4 g/dL (6.3-8.2)
[2024-11-14 03:25] LABS: Potassium 4.4 mmol/L (3.5-5.1)
--- NOTE | 2024-11-14 04:47 | ED ---
General Adult HPI - General Chief complaint: Abdominal Pain Stated complaint: Abd pain Time Seen by Provider: 11/14/24 03:48 Source: patient Mode of arrival: ambulatory Limitations: no limitations - History of Present Illness Initial comments: 1 patient is a healthy 24-year-old female who presents the ER today for evaluation of abdominal pain. Patient reports that for a number of years she has been dealing with episodic right upper quadrant abdominal pain occasionally associated nausea. Patient saw her primary care about this and had a ultrasound ordered which was performed earlier today she was called and advised that there may have been some gallbladder wall thickening and she may have cholecystitis if she got worse she should come to the ER. Patient states that she was not really getting any worse but was concerned and is sick of having this pain so frequently so she came to the ER for evaluation. No fevers chills or nausea or vomiting tonight. - Related Data Home Medications Medication Instructions Recorded Confirmed busPIRone HCL 15 mg PO BID 08/01/20 12/02/21 Aspirin 81 mg PO DAILY 11/16/21 12/02/21 DULoxetine HCL [Cymbalta] 60 mg PO DAILY 11/16/21 12/02/21 Iron 18 mg PO DAILY 11/16/21 12/02/21 Pnv No.95/Ferrous Fum/Folic AC 1 each PO DAILY 11/16/21 12/02/21 [ Multivitamin Tablet] Sennosides [Senna] 8.6 mg PO DAILY 11/16/21 12/02/21 cloNIDine HCL 0.1 mg PO DAILY PRN 12/02/21 12/02/21 Previous Rx's Medication Instructions Recorded Penicillin V Potassium [Pen Vee K] 500 mg PO QID 7 Days #28 tablet 10/22/22 Allergies Allergy/AdvReac Type Severity Reaction Status Date / Time No Known Allergies Allergy Verified 11/14/24 01:58 Review of Systems ROS Statement: Those systems with pertinent positive or pertinent negative responses have been documented in the HPI. ROS Other: All systems not noted in ROS Statement are negative. Past Medical History Additional Past Medical History / Comment(s): scoliosis. TROUBLE SWALLOWING BREAD AND VEGETABLES, POSS REFLUX History of Any Multi-Drug Resistant Organisms: None Reported Past Surgical History: Tonsillectomy Additional Past Surgical History / Comment(s): tooth pulled under anesthesia, lip lift Past Anesthesia/Blood Transfusion Reactions: No Reported Reaction Past Psychological History: ADD/ADHD, Anxiety, Depression, PTSD Smoking Status: Never smoker Past Alcohol Use History: Occasional Past Drug Use History: None Reported - Past Family History Mother Family Medical History: No Reported History General Exam - General Exam Comments Initial Comments: Physical Exam GENERAL: Patient is well-developed and well-nourished. Patient is nontoxic and well- hydrated and is in no distress. HENT: Normocephalic, Atraumatic. EYES: PERRL, EOMI PULMONARY: Unlabored respirations. No audible rales rhonchi or wheezing was noted. CARDIOVASCULAR: There is a regular rate and rhythm without any murmurs gallops or rubs. ABDOMEN: Soft and nontender with normal bowel sounds. SKIN: Skin is clear with no lesions or rashes and otherwise unremarkable. : Deferred NEUROLOGIC: Patient is alert and oriented x3. Moving all extremities spontaneously MUSCULOSKELETAL: Normal extremities with adequate strength and full range of motion. No lower extremity swelling or edema. No calf tenderness. PSYCHIATRIC: Normal psychiatric evaluation. Limitations: no limitations Course Vital Signs 11/14/24 11/14/24 01:55 06:03 Temperature 97.6 F 97.8 F Pulse Rate 78 75 Respiratory 18 18 Rate Blood Pressure 126/87 122/78 O2 Sat by Pulse 100 98 Oximetry Medical Decision Making - Medical Decision Making Was pt. sent in by a medical professional or institution (MARTINEZ López, CAR SEAT MAKER, urgent care, hospital, or senior care...) When possible be specific @ -No Did you speak to anyone other than the patient for history (EMS, parent, family, police, friend...)? What history was obtained from this source @ -No Did you review nursing and triage notes (agree or disagree)? Why? @ -I reviewed and agree with nursing and triage notes Were old charts reviewed (outside hosp., previous admission, EMS record, old EKG, old radiological studies, urgent care reports/EKG's, senior care records)? Report findings @ -Yes previous ultrasound of the abdomen was reviewed Differential Diagnosis (chest pain, altered mental status, abdominal pain women, abdominal pain men, vaginal bleeding, weakness, fever, dyspnea, syncope, headache, dizziness, GI bleed, back pain, seizure, CVA, palpatations, mental health)? @ -Differential Abdominal Pain Women: Appendicitis, Cholecystitis, diverticulosis, ischemic bowel, pancreatitis, hepatitis, UTI, gastroenteritis, AAA, incarcerated hernia, bowel obstruction, constipation, inflammatory bowel, hepatitis, peptic ulcer disease, splenic infarction, perforated viscus, vulvitis, ovarian torsion, PID, kidney stone, placenta abruption, this is not meant to be an all-inclusive list EKG interpreted by me (3pts min.). @ -As above X-rays interpreted by me (1pt min.). @ -None done CT interpreted by me (1pt min.). @ -None done U/S interpreted by me (1pt. min.). @ -None done What testing was considered but not performed or refused? (CT, X-rays, U/S, labs)? Why? @ -Ultrasound was considered but had been performed earlier in the day, HIDA s can was discussed and can be performed outpatient What meds were considered but not given or refused? Why? @ -None Did you discuss the management of the patient with other professionals (professionals i.e. , PA, CAR SEAT MAKER, lab, RT, psych nurse, social welfare administrator, block cuber, teacher, evp chief exploration officer, correctional case manager)? Give summary @ -No Was smoking cessation discussed for >3mins.? @ -No Was critical care preformed (if so, how long)? @ -No Were there social determinants of health that impacted care today? How? (Homelessness, low income, unemployed, alcoholism, drug addiction, transportation, low edu. Level, literacy, decrease access to med. care, snf, rehab)? @ -No Was there de-escalation of care discussed even if they declined (Discuss DNR or withdrawal of care, Hospice)? DNR status @ -No What co-morbidities impacted this encounter? (DM, HTN, Smoking, COPD, CAD, Cancer, CVA, ARF, Chemo, Hep., AIDS, mental health diagnosis, sleep apnea, morbid obesity)? @ -None Was patient admitted / discharged? Hospital course, mention meds given and route, prescriptions, significant lab abnormalities, going to OR and other pertinent info. @ -Discharged Patient was seen and evaluated ultrasound was reviewed there may have been sludge and shadowing versus very mild thickening of the right upper quadrant. Patient's not have any right upper quadrant pain at this time she has no fever nausea vomiting or leukocytosis. At this time patient stable for outpatient management, likely need a HIDA scan and surgical evaluation. Undiagnosed new problem with uncertain prognosis? @ -No Drug Therapy requiring intensive monitoring for toxicity (Heparin, Nitro, Insulin, Cardizem)? @ -No Were any procedures done? @ -No Diagnosis/symptom? @ -Abdominal pain Acute, or Chronic, or Acute on Chronic? @ -Default Uncomplicated (without systemic symptoms) or Complicated (systemic symptoms)? @ -Default Side effects of treatment? @ -No Exacerbation, Progression, or Severe Exacerbation? @ -No Poses a threat to life or bodily function? How? (Chest pain, [place], [place], pneumonia, PE, COPD, DKA, ARF, appy, cholecystitis, CVA, Diverticulitis, Homicidal, Suicidal, threat to staff... and all critical care pts) @ -No - Lab Data Result diagrams: 11/14/24 02:23 11/14/24 02:23 Lab Results 11/14/24 11/14/24 11/14/24 Range/Units 02:23 02:23 02:23 WBC 6.4 (3.8-10.6) k/uL RBC 4.29 (3.80-5.40) m/uL Hgb 13.1 (11.4-16.0) gm/dL Hct 39.4 (34.0-46.0) % MCV 92.0 (80.0-100.0) fL MCH 30.6 (25.0-35.0) pg MCHC 33.2 (31.0-37.0) g/dL RDW 12.9 (11.5-15.5) % Plt Count 248 (150-450) k/uL MPV 8.5 Neutrophils % 47 % Lymphocytes % 45 % Monocytes % 4 % Eosinophils % 2 % Basophils % 0 % Neutrophils # 3.0 (1.3-7.7) k/uL Lymphocytes # 2.9 (1.0-4.8) k/uL Monocytes # 0.3 (0-1.0) k/uL Eosinophils # 0.1 (0-0.7) k/uL Basophils # 0.0 (0-0.2) k/uL Sodium (137-145) mmol/L Potassium (3.5-5.1) mmol/L Chloride (98-107) mmol/L Carbon Dioxide (22-30) mmol/L Anion Gap mmol/L BUN (7-17) mg/dL Creatinine (0.52-1.04) mg/dL Est GFR (CKD-EPI)AfAm (>60 ml/min/1.73 sqM) Est GFR (CKD-EPI)NonAf (>60 ml/min/1.73 sqM) Glucose (74-99) mg/dL Calcium (8.4-10.2) mg/dL Total Bilirubin (0.2-1.3) mg/dL AST (14-36) U/L ALT (4-34) U/L Alkaline Phosphatase (38-126) U/L Total Protein (6.3-8.2) g/dL Albumin (3.5-5.0) g/dL Lipase (23-300) U/L Urine Color Light Yellow Urine Appearance Clear (Clear) Urine pH 5.5 (5.0-8.0) Ur Specific [place] 1.030 (1.001-1.035) Urine Protein Negative (Negative) Urine Glucose (UA) Negative (Negative) Urine Ketones Negative (Negative) Urine Blood Negative (Negative) Urine Nitrite Negative (Negative) Urine Bilirubin Negative (Negative) Urine Urobilinogen <2.0 (<2.0) mg/dL Ur Leukocyte Esterase Negative (Negative) Urine HCG, Qual Not Detected (Not Detectd) 11/14/24 Range/Units 02:23 WBC (3.8-10.6) k/uL RBC (3.80-5.40) m/uL Hgb (11.4-16.0) gm/dL Hct (34.0-46.0) % MCV (80.0-100.0) fL MCH (25.0-35.0) pg MCHC (31.0-37.0) g/dL RDW (11.5-15.5) % Plt Count (150-450) k/uL MPV Neutrophils % % Lymphocytes % % Monocytes % % Eosinophils % % Basophils % % Neutrophils # (1.3-7.7) k/uL Lymphocytes # (1.0-4.8) k/uL Monocytes # (0-1.0) k/uL Eosinophils # (0-0.7) k/uL Basophils # (0-0.2) k/uL Sodium 135 L (137-145) mmol/L Potassium 4.4 (3.5-5.1) mmol/L Chloride 106 (98-107) mmol/L Carbon Dioxide 25 (22-30) mmol/L Anion Gap 4 mmol/L BUN 24 H (7-17) mg/dL Creatinine 0.73 (0.52-1.04) mg/dL Est GFR (CKD-EPI)AfAm >90 (>60 ml/min/1.73 sqM) Est GFR (CKD-EPI)NonAf >90 (>60 ml/min/1.73 sqM) Glucose 89 (74-99) mg/dL Calcium 9.8 (8.4-10.2) mg/dL Total Bilirubin 0.6 (0.2-1.3) mg/dL AST 21 (14-36) U/L ALT 17 (4-34) U/L Alkaline Phosphatase 26 L (38-126) U/L Total Protein 7.4 (6.3-8.2) g/dL Albumin 4.7 (3.5-5.0) g/dL Lipase 99 (23-300) U/L Urine Color Urine Appearance (Clear) Urine pH (5.0-8.0) Ur Specific [place] (1.001-1.035) Urine Protein (Negative) Urine Glucose (UA) (Negative) Urine Ketones (Negative) Urine Blood (Negative) Urine Nitrite (Negative) Urine Bilirubin (Negative) Urine Urobilinogen (<2.0) mg/dL Ur Leukocyte Esterase (Negative) Urine HCG, Qual (Not Detectd) Disposition Clinical Impression: Gallstones Disposition: HOME SELF-CARE Condition: Stable Additional Instructions: Continue your oral antibiotics, avoid greasy, fatty or spicy foods. Follow-up with a surgeon for potential removal of the gallbladder. Is patient prescribed a controlled substance at d/c from ED?: No Referrals: Wicho Olivas DO [Primary Care Provider] - 1-2 days Saúl Hussein MD [Medical Doctor] - 1-2 days
[2024-11-14 06:05] VITALS: BP 122/78; PULSE 75; TEMP 97.8
--- NOTE | 2024-11-14 07:06 | XR ---
EXAM: XR Abdomen, 2 Views CLINICAL HISTORY: ITS.REASON XR Reason: abdominal pain TECHNIQUE: Frontal view of the abdomen/pelvis with upright view of the abdomen. COMPARISON: No relevant prior studies available. FINDINGS: Intraperitoneal space: No free air. Gastrointestinal tract: Unremarkable. No dilation. Bones/joints: Unremarkable. No acute fracture. IMPRESSION: Normal abdominal x-rays.
== END 2024-11-14 06:11 | disposition home or self-care (01) ==
LOC: EC 01:52
DX: K80.20 Calculus of gallbladder without cholecystitis without obstruction (principal)
CPT/HCPCS: 36415; 74018; 80053; 81003; 81025; 83690; 85025; 99284